=== PATIENT | male | born 1935 | race Caucasian/White ===

== ENCOUNTER → 2021-03-17 | Outpatient (CLI) | payer MEDICARE ==
[~2021-03-17] MED LIST: CLIN300 PO; HYDACE5 PO
[2021-03-17 17:40] LABS: BASOPHILS ABSOLUTE AUTO 0.08 K/mm3 (0.00-0.23); BASOPHILS PERCENT AUTO 1 % (0-2); EOSINOPHILS ABSOLUTE AUTO 0.43 K/mm3 (0.00-0.68); EOSINOPHILS PERCENT AUTO 5 % (0-6); Hematocrit 36.4 % (37.0-53.0); Hemoglobin 11.7 g/dL (13.5-17.5); IMMATURE GRAN ABSOLUTE AUTO 0.01 K/mm3 (0.00-0.10); IMMATURE GRAN PERCENT AUTO 0 % (0-1); LYMPHOCYTES ABSOLUTE AUTO 1.68 K/mm3 (0.84-5.20); LYMPHOCYTES PERCENT AUTO 21 % (21-46); MONOCYTES ABSOLUTE AUTO 1.09 K/mm3 (0.16-1.47); MONOCYTES PERCENT AUTO 14 % (4-13); Mean Corpuscular HGB 28.8 pg (26.0-34.0); Mean Corpuscular HGB Conc 32.1 g/dL (31.5-36.5); Mean Corpuscular Volume 90 fL (80-100); Mean Platelet Volume 12.3 fL (9.1-12.4); NEUTROPHILS ABSOLUTE AUTO 4.76 K/mm3 (1.96-9.15); NEUTROPHILS PERCENT AUTO 59 % (41-73); Platelet Count 241 K/mm3 (150-400); RDW Coefficient Variation 13.9 % (11.7-14.2); RDW Standard Deviation 45.3 fL (35.1-46.3); Red Blood Cell Count 4.06 M/mm3 (4.30-5.90); White Blood Cell Count 8.05 K/mm3 (4.00-11.30)
[2021-03-17 19:18] LABS: Alanine Aminotransfer (ALT/SGP 20 U/L (12-78); Albumin, Blood 3.5 g/dL (3.4-5.0); Albumin/Globulin Ratio 0.9 (0.8-1.8); Alk Phos 88 U/L (50-136); Anion Gap 4 mmol/L (6-16); Aspartate Aminotrans (AST/SGOT 18 U/L (12-37); Bilirubin, Total 0.3 mg/dL (0.1-1.0); Blood Urea Nitrogen 19 mg/dL (8-24); Bun/Creatinine Ratio 16.1 (12.0-20.0); CHOL/HDL RATIO 4.1; CO2, Blood 27 mmol/L (21-32); Calcium, Blood 9.3 mg/dL (8.5-10.1); Chloride, Blood 106 mmol/L (98-108); Cholesterol 167 mg/dL (50-200); Creatinine, Blood 1.18 mg/dL (0.60-1.20); Free Thyroxine 1.01 ng/dL (0.70-1.60); Globulin, Blood 3.7 g/dL (2.2-4.0); Glomerular Filtration Rate >60 (60-); Glucose, Blood 100 mg/dL (70-99); HDL Cholesterol 41 mg/dL (>39); LDL/HDL RATIO 2.1; Low Density Lipoprotein Chol 85 mg/dL (0-110); Potassium, Blood 4.8 mmol/L (3.5-5.5); Sodium, Blood 137 mmol/L (136-145); Total Protein, Blood 7.2 g/dL (6.4-8.2); Triglycerides 204 mg/dL (30-160); Very Low Density Lipoprot Chol 40 mg/dL (6-32)
== END | disposition home or self-care (01) ==
LOC: LAB SHORT 16:29 → LAB 16:29
PROVIDERS: Nurse Practitioner Family
DX: E78.5 Hyperlipidemia, unspecified (principal); Z86.39 Personal history of other endocrine, nutritional and metabolic disease
CPT/HCPCS: 80053; 80061; 83036; 84439; 84443; 85025

== ENCOUNTER 2022-09-23 12:28 | Day surgery (SDC) | payer OTHER ==
[~2022-09-23] VITALS: Ht 185.4 cm; Wt 81.7 kg
[~2022-09-23 12:28] MED LIST changes: +Floxin10 ML LEFTEYE; +KETO.5OPSO LEFTEYE; +LATA.005SO BOTHEYES; +PRED FORTE5 M1 LEFTEYE; +Preservision A1 EACH; +RHOPRESSA2.5 ML; +SIMBRINZA 1%-0.28 M1; +TIMO.25OPS; +Zestril30 MG PO
--- NOTE | 2022-09-23 13:16 | NUR ---
09/23/22 1316 Yesika Hook IN AT 1301 EULALIO IN AT 1300
== END 2022-09-23 14:40 | disposition home or self-care (01) ==
LOC: ORSCSDS 12:28
PROVIDERS: Ophthalmology
PROC: 08933ZZ Drainage of Left Anterior Chamber, Percutaneous Approach (ICD-10-PCS; principal; 2022-09-23 14:00)
PROC: 08RK3JZ Replacement of Left Lens with Synthetic Substitute, Percutaneous Approach (ICD-10-PCS; principal; 2022-09-23 14:00)
DX: H25.12 Age-related nuclear cataract, left eye (principal); Z96.1 Presence of intraocular lens; I10 Essential (primary) hypertension; H40.9 Unspecified glaucoma; H35.30 Unspecified macular degeneration
CPT/HCPCS: J2001; J2250; J3010; J3301; V2632

== ENCOUNTER 2022-11-04 08:19 | Emergency (ER) | payer OTHER ==
[~2022-11-04] VITALS: Ht 188 cm; Wt 79.4 kg
[2022-11-04 09:08] LABS: BASOPHILS ABSOLUTE AUTO 0.05 K/mm3 (0.00-0.23); BASOPHILS PERCENT AUTO 1 % (0-2); EOSINOPHILS ABSOLUTE AUTO 0.29 K/mm3 (0.00-0.68); EOSINOPHILS PERCENT AUTO 4 % (0-6); Hematocrit 38.4 % (37.0-53.0); Hemoglobin 12.3 g/dL (13.5-17.5); IMMATURE GRAN ABSOLUTE AUTO 0.03 K/mm3 (0.00-0.10); IMMATURE GRAN PERCENT AUTO 0 % (0-1); LYMPHOCYTES PERCENT AUTO 17 % (21-46); MONOCYTES ABSOLUTE AUTO 0.74 K/mm3 (0.16-1.47); MONOCYTES PERCENT AUTO 10 % (4-13); Mean Corpuscular HGB 29.3 pg (26.0-34.0); Mean Corpuscular Volume 91 fL (80-100); Mean Platelet Volume 11.1 fL (9.1-12.4); NEUTROPHILS ABSOLUTE AUTO 5.39 K/mm3 (1.96-9.15); NEUTROPHILS PERCENT AUTO 69 % (41-73); Platelet Count 221 K/mm3 (150-400); RDW Coefficient Variation 13.6 % (11.7-14.2); RDW Standard Deviation 45.6 fL (35.1-46.3)
[2022-11-04 09:30] LABS: Magnesium, Blood 1.9 mg/dL (1.6-2.4)
[2022-11-04 09:34] LABS: Albumin, Blood 3.2 g/dL (3.4-5.0); Albumin/Globulin Ratio 0.9 (0.8-1.8); Bilirubin, Total 0.3 mg/dL (0.1-1.0); Calcium, Blood 8.3 mg/dL (8.5-10.1); Creatinine, Blood 1.19 mg/dL (0.60-1.20); Globulin, Blood 3.4 g/dL (2.2-4.0); Potassium, Blood 4.2 mmol/L (3.5-5.5); Thyroid Stimulating Hormone 2.6 uIU/mL (0.360-4.800); Total Protein, Blood 6.6 g/dL (6.4-8.2)
[2022-11-04] MEDS ORDERED: Toprol Xl25 MG PO (15:26)
[2022-11-04] MEDS ORDERED: XARELTO20 MG PO (15:26)
== END 2022-11-04 15:52 | disposition home or self-care (01) ==
LOC: ER 08:19
PROVIDERS: Emergency Medicine
DX: I48.91 Unspecified atrial fibrillation (principal); I10 Essential (primary) hypertension; Z79.899 Other long term (current) drug therapy
CPT/HCPCS: 71045; 80053; 83735; 84443; 85025

== ENCOUNTER 2024-12-11 11:34 | Emergency (ER) | payer OTHER ==
[~2024-12-11] VITALS: Ht 172.7 cm; Wt 72.6 kg
[~2024-12-11 11:34] MED LIST changes: +Toprol Xl25 MG PO; +XARELTO20 MG PO
[2024-12-11 12:29] LABS: BASOPHILS ABSOLUTE AUTO 0.04 K/mm3 (0.00-0.23); BASOPHILS PERCENT AUTO 1 % (0-2); EOSINOPHILS ABSOLUTE AUTO 0.16 K/mm3 (0.00-0.68); EOSINOPHILS PERCENT AUTO 2 % (0-6); Hematocrit 30.6 % (37.0-53.0); Hemoglobin 10.2 g/dL (13.5-17.5); IMMATURE GRAN ABSOLUTE AUTO 0.03 K/mm3 (0.00-0.10); IMMATURE GRAN PERCENT AUTO 0 % (0-1); LYMPHOCYTES ABSOLUTE AUTO 0.76 K/mm3 (0.84-5.20); LYMPHOCYTES PERCENT AUTO 10 % (21-46); MONOCYTES ABSOLUTE AUTO 0.92 K/mm3 (0.16-1.47); MONOCYTES PERCENT AUTO 12 % (4-13); Mean Corpuscular HGB 29.6 pg (26.0-34.0); Mean Corpuscular HGB Conc 33.3 g/dL (31.5-36.5); Mean Corpuscular Volume 89 fL (80-100); Mean Platelet Volume 11.5 fL (9.1-12.4); NEUTROPHILS PERCENT AUTO 74 % (41-73); Platelet Count 234 K/mm3 (150-400); RDW Coefficient Variation 13.8 % (11.7-14.2); RDW Standard Deviation 44.6 fL (35.1-46.3); Red Blood Cell Count 3.45 M/mm3 (4.30-5.90); White Blood Cell Count 7.41 K/mm3 (4.00-11.30)
[2024-12-11 13:00] LABS: Albumin, Blood 3.4 g/dL (3.4-5.0); Bilirubin, Total 0.6 mg/dL (0.1-1.0); Calcium, Blood 9.5 mg/dL (8.5-10.1); Creatinine, Blood 1.12 mg/dL (0.60-1.20); Globulin, Blood 3.4 g/dL (2.2-4.0); Potassium, Blood 4.2 mmol/L (3.5-5.5); Total Protein, Blood 6.8 g/dL (6.4-8.2)
[2024-12-11 13:45] VITALS: BP 127/60
== END 2024-12-11 14:06 | disposition home or self-care (01) ==
LOC: ER 11:34
PROVIDERS: Emergency Medicine
DX: F03.90 Unspecified dementia, unspecified severity, without behavioral disturbance, psychotic disturbance, mood disturbance, and anxiety (principal); R29.6 Repeated falls; I10 Essential (primary) hypertension; Z79.899 Other long term (current) drug therapy; Z79.01 Long term (current) use of anticoagulants
CPT/HCPCS: 70450; 80053; 85025; 93005; 93010; 99284-25

== ENCOUNTER 2025-02-11 15:52 | Emergency (ER) | payer OTHER ==
[~2025-02-11] VITALS: Ht 172.7 cm; Wt 74.8 kg
[2025-02-11 16:52] LABS: BASOPHILS ABSOLUTE AUTO 0.04 K/mm3 (0.00-0.23); BASOPHILS PERCENT AUTO 1 % (0-2); EOSINOPHILS ABSOLUTE AUTO 0.29 K/mm3 (0.00-0.68); EOSINOPHILS PERCENT AUTO 5 % (0-6); Hematocrit 31.6 % (37.0-53.0); Hemoglobin 9.9 g/dL (13.5-17.5); IMMATURE GRAN ABSOLUTE AUTO 0.01 K/mm3 (0.00-0.10); IMMATURE GRAN PERCENT AUTO 0 % (0-1); LYMPHOCYTES ABSOLUTE AUTO 1.12 K/mm3 (0.84-5.20); LYMPHOCYTES PERCENT AUTO 18 % (21-46); MONOCYTES ABSOLUTE AUTO 0.74 K/mm3 (0.16-1.47); MONOCYTES PERCENT AUTO 12 % (4-13); Mean Corpuscular HGB 28.8 pg (26.0-34.0); Mean Corpuscular HGB Conc 31.3 g/dL (31.5-36.5); Mean Corpuscular Volume 92 fL (80-100); Mean Platelet Volume 11.6 fL (9.1-12.4); NEUTROPHILS ABSOLUTE AUTO 4.21 K/mm3 (1.96-9.15); NEUTROPHILS PERCENT AUTO 66 % (41-73); Platelet Count 215 K/mm3 (150-400); RDW Standard Deviation 47.1 fL (35.1-46.3); Red Blood Cell Count 3.44 M/mm3 (4.30-5.90); White Blood Cell Count 6.41 K/mm3 (4.00-11.30)
[2025-02-11 17:09] LABS: Albumin, Blood 3.4 g/dL (3.4-5.0); Albumin/Globulin Ratio 1.1 (0.8-1.8); Bilirubin, Total 0.3 mg/dL (0.1-1.0); Bun/Creatinine Ratio 28.4 (12.0-20.0); Calcium, Blood 8.9 mg/dL (8.5-10.1); Creatinine, Blood 1.09 mg/dL (0.60-1.20); Globulin, Blood 3.1 g/dL (2.2-4.0); Potassium, Blood 4.4 mmol/L (3.5-5.5); Total Protein, Blood 6.5 g/dL (6.4-8.2)
[2025-02-11 18:30] VITALS: BP 149/67
== END 2025-02-11 20:58 | disposition home or self-care (01) ==
LOC: ER 15:52
PROVIDERS: Student in an Organized Health Care Education/Training Program
DX: R60.0 Localized edema (principal); S80.811A Abrasion, right lower leg, initial encounter; I10 Essential (primary) hypertension; F03.90 Unspecified dementia, unspecified severity, without behavioral disturbance, psychotic disturbance, mood disturbance, and anxiety; Z79.01 Long term (current) use of anticoagulants; Z79.899 Other long term (current) drug therapy; W18.40XA Slipping, tripping and stumbling without falling, unspecified, initial encounter
CPT/HCPCS: 71046; 80053; 83880; 85025; 93005; 93010; 99284-25

== ENCOUNTER 2025-04-22 07:07 | Emergency (ER) | payer OTHER ==
[~2025-04-22] VITALS: Ht 182.9 cm; Wt 81.7 kg
[2025-04-22] MEDS ORDERED: Lidocaine 4% 1 Patch TOP ONE (07:40)
[2025-04-22] MEDS ORDERED: LIDO700A20 TOP (09:57)
[2025-04-22] MEDS ORDERED: ACET500 PO (09:57)
[2025-04-22] MEDS ORDERED: Prinivil10 MG PO (12:48)
[2025-04-22] MEDS ORDERED: [UNRECOGNIZED DRUG - OTHER] PO (12:49)
[2025-04-22] MEDS ORDERED: FURO40 PO (12:49)
[2025-04-22] MEDS ORDERED: AREDS 2 FORMULA PO (12:49)
[2025-04-22] MEDS ORDERED: ELIQUIS5 M2 PO (12:50)
[2025-04-22] MEDS ORDERED: MIRT30 PO (12:50)
[2025-04-22] MEDS ORDERED: FEROSUL325 M1 PO (12:51)
[2025-04-23] MEDS ORDERED: Lidocaine 4% 1 Patch TOP ONE (06:05)
[2025-04-23 10:24] VITALS: BP 141/67
== END 2025-04-23 11:33 ==
LOC: ER 07:07
DX: S20.212A Contusion of left front wall of thorax, initial encounter (principal); W18.30XA Fall on same level, unspecified, initial encounter; R55 Syncope and collapse; F03.90 Unspecified dementia, unspecified severity, without behavioral disturbance, psychotic disturbance, mood disturbance, and anxiety; I10 Essential (primary) hypertension; I48.91 Unspecified atrial fibrillation; Z66 Do not resuscitate; Z79.01 Long term (current) use of anticoagulants; Z79.899 Other long term (current) drug therapy
CPT/HCPCS: 71101; 97162; 99285-25; A9270

== ENCOUNTER 2025-05-28 17:22 | Inpatient (IN) | payer OTHER, MEDICARE ==
[~2025-05-28] VITALS: Ht 185.4 cm; Wt 67.4 kg
[~2025-05-28 17:22] MED LIST changes: +ACET500 PO; +AREDS 2 FORMULA PO; +ELIQUIS5 M2 PO; +FEROSUL325 M1 PO; +FURO40 PO; +LIDO700A20 TOP; +MIRT30 PO; +Prinivil10 MG PO; +[UNRECOGNIZED DRUG - OTHER] PO
[2025-05-28 17:59] LABS: BASOPHILS ABSOLUTE AUTO 0.01 K/mm3 (0.00-0.23); BASOPHILS PERCENT AUTO 0 % (0-2); EOSINOPHILS ABSOLUTE AUTO 0.00 K/mm3 (0.00-0.68); EOSINOPHILS PERCENT AUTO 0 % (0-6); Hematocrit 28.4 % (37.0-53.0); Hemoglobin 9.3 g/dL (13.5-17.5); IMMATURE GRAN ABSOLUTE AUTO 0.07 K/mm3 (0.00-0.10); IMMATURE GRAN PERCENT AUTO 0 % (0-1); LYMPHOCYTES ABSOLUTE AUTO 0.96 K/mm3 (0.84-5.20); LYMPHOCYTES PERCENT AUTO 6 % (21-46); MONOCYTES ABSOLUTE AUTO 1.77 K/mm3 (0.16-1.47); MONOCYTES PERCENT AUTO 10 % (4-13); Mean Corpuscular HGB Conc 32.7 g/dL (31.5-36.5); Mean Corpuscular Volume 90 fL (80-100); NEUTROPHILS ABSOLUTE AUTO 14.72 K/mm3 (1.96-9.15); NEUTROPHILS PERCENT AUTO 84 % (41-73); NRBC ABSOLUTE 0.00 K/mm3 (0.00-0.02); NRBC Auto 0.0 /100 WBC (0.0-0.2); Platelet Count 268 K/mm3 (150-400); RDW Coefficient Variation 15.8 % (11.7-14.2); RDW Standard Deviation 52.1 fL (35.1-46.3)
[2025-05-28 18:42] LABS: Alanine Aminotransfer (ALT/SGP 19.0 U/L (12-78); Albumin, Blood 2.5 g/dL (3.4-5.0); Albumin/Globulin Ratio 0.6 (0.8-1.8); Anion Gap 5.0 mmol/L (3-11); Aspartate Aminotrans (AST/SGOT 38.0 U/L (12-37); Bilirubin, Total 0.4 mg/dL (0.1-1.0); Blood Urea Nitrogen 86.0 mg/dL (8-24); CO2, Blood 26.0 mmol/L (21-32); Calcium, Blood 9.1 mg/dL (8.5-10.1); Chloride, Blood 106.0 mmol/L (98-108); Creatinine, Blood 4.11 mg/dL (0.60-1.20); Globulin, Blood 4.2 g/dL (2.2-4.0); Glucose, Blood 155.0 mg/dL (70-99); Potassium, Blood 5.2 mmol/L (3.5-5.5); Sodium, Blood 132.0 mmol/L (136-145); Total Protein, Blood 6.7 g/dL (6.4-8.2)
[2025-05-28] MEDS ORDERED: NS 1,000 ML IV SCH (20:25)
[2025-05-28] MEDS ORDERED: Ondansetron HCl 2 MG / ML 2ML Vial IV PRN (20:25)
[2025-05-28] MEDS ORDERED: HydrALAZINE HCl 20 MG / ML 1ML Vial IV PRN (20:30)
[2025-05-28 20:34] LABS: Source, Urine Foley catheter
[2025-05-28 20:42] LABS: Magnesium, Blood 2.8 mg/dL (1.6-2.4); Phosphorus, Blood 6.1 mg/dL (2.5-4.9)
[2025-05-28 20:45] LABS: Bilirubin, Urine Neg (Neg); Color, Urine Yellow (P-Yellow); Glucose Qualitative, Urine Neg (Neg); Ketones, Urine Neg (Neg); Leukocyte Esterase, Urine 3+ (Neg); Protein, Urine 2+ (Neg); Specific Gravity, Urine 1.020 (1.003-1.022); Urobilinogen, Urine NORM (Normal)
[2025-05-28] MEDS ORDERED: CefTRIAXone Sodium 1,000 MG in NS 100 ML IV ONE (20:50)
[2025-05-28] MEDS ORDERED: Heparin Sodium,Porcine 5,000 UNIT/0.5 ML SDV SC SCH (21:00)
[2025-05-28] MEDS ORDERED: NS 1,000 ML IV ONE (21:00)
[2025-05-29] MEDS ORDERED: NS 1,000 ML IV ONE (06:20)
[2025-05-29 06:33] LABS: BASOPHILS ABSOLUTE AUTO 0.01 K/mm3 (0.00-0.23); BASOPHILS PERCENT AUTO 0 % (0-2); EOSINOPHILS ABSOLUTE AUTO 0.01 K/mm3 (0.00-0.68); EOSINOPHILS PERCENT AUTO 0 % (0-6); Hematocrit 27.2 % (37.0-53.0); Hemoglobin 8.7 g/dL (13.5-17.5); IMMATURE GRAN ABSOLUTE AUTO 0.07 K/mm3 (0.00-0.10); IMMATURE GRAN PERCENT AUTO 1 % (0-1); LYMPHOCYTES ABSOLUTE AUTO 0.81 K/mm3 (0.84-5.20); LYMPHOCYTES PERCENT AUTO 6 % (21-46); MONOCYTES ABSOLUTE AUTO 1.45 K/mm3 (0.16-1.47); MONOCYTES PERCENT AUTO 11 % (4-13); Mean Corpuscular HGB Conc 32.0 g/dL (31.5-36.5); Mean Corpuscular Volume 91 fL (80-100); NEUTROPHILS ABSOLUTE AUTO 11.27 K/mm3 (1.96-9.15); NEUTROPHILS PERCENT AUTO 83 % (41-73); NRBC ABSOLUTE 0.00 K/mm3 (0.00-0.02); NRBC Auto 0.0 /100 WBC (0.0-0.2); Platelet Count 208 K/mm3 (150-400); RDW Coefficient Variation 15.9 % (11.7-14.2); RDW Standard Deviation 52.5 fL (35.1-46.3)
[2025-05-29 06:52] LABS: Anion Gap 11.0 mmol/L (3-11); Blood Urea Nitrogen 96.0 mg/dL (8-24); CO2, Blood 24.0 mmol/L (21-32); Calcium, Blood 8.6 mg/dL (8.5-10.1); Chloride, Blood 109.0 mmol/L (98-108); Creatinine, Blood 4.09 mg/dL (0.60-1.20); Glucose, Blood 106.0 mg/dL (70-99); Magnesium, Blood 2.7 mg/dL (1.6-2.4); Potassium, Blood 4.3 mmol/L (3.5-5.5); Sodium, Blood 140.0 mmol/L (136-145)
[2025-05-29 09:15] VITALS: BP 104/56
[2025-05-29] MEDS ORDERED: LOPE2C PO (10:47)
[2025-05-29] MEDS ORDERED: Hair, Skin & N1 EACH PO (10:48)
[2025-05-29] MEDS ORDERED: Acetaminophen650 M1 PO (11:02)
[2025-05-29] MEDS ORDERED: BISA10S PR (11:03)
[2025-05-29] MEDS ORDERED: DULCOLAX400 MG/5 M PO (11:04)
[2025-05-29 11:31] VITALS: BP 94/53
[2025-05-29 15:41] VITALS: BP 108/69
--- NOTE | 2025-05-29 15:46 | NUR ---
SPOKE WITH PT'S FRANCK BY PHONE. SHE STATES SHE WAS NOT AWARE OF OR ON BOARD WITH PT'S CODE STATUS COMFORT CARE ONLY. THE PATIENT HAS DEMENTIA AND REQUIRES ASSISTANCE WITH DECISION MAKING. HIS , FRANCK IS HIS PROXY. BART HOYT COMPLETED, PT NOW DNR WITH SELECTIVE TREATMENT. PT TO RETURN TO [facility] WHEN DISCHARGED.
[2025-05-29] MEDS ORDERED: NS 1,000 ML IV SCH (16:25)
--- NOTE | 2025-05-29 18:15 | NUR ---
PCU Admit / Transfer to Medical Pt brought to PCU-08 by cara from ER @ approx 0900. Pt A&O to self. Pt stating "I don't know" when asking further orientation questions. Pt 1-2 person assist for repositioning. VSS. Spo2 > 92% on RA. Monitor showing SR w/ PVCs. Blandon cath patent & draining dark tea colored urine upon arrival. Pt urine then lightening in color. Pt moaning out frequently. MD to bedside for evaluation & w/ order for PO pain medication & RLE imgaging d/t pt reporting pain "all over" but worst "R leg". Xrays done in pt rm. Report given to accepting medical floor RN assuming care of pt. Pt taken to rm 350 by bed w/ belongings @ approx 1815.
[2025-05-29 20:24] VITALS: BP 114/65
[2025-05-29] MEDS ORDERED: CefTRIAXone Sodium 1,000 MG in NS 100 ML IV SCH (21:00)
--- NOTE | 2025-05-30 04:56 | NUR ---
SHIFT SUMMARY NOC PT A/O TO SELF. SCREAMING OUT CONSTANTLY, BUT IN NO VISIBLE SIGNS OF DISTRESS NOTED AND COOPERATIVE WITH CARE. PT HAS TENDENCY TO POCKET FLUIDS AND FOOD. PAIN MEDICATION HELPED SLIGHTLY AND PT STOPPED FOR AWHILE. PT GIVEN ONE TIME DOSE SEROQUEL 50MG PO AND PT FELL ASLEEP. VSS. JORDAN IN PLACE WITH DARK TEA COLORED URINE. NS INFUSING @ 125 ML/HR. PT CURRENTLY RESTING WITH BED ALARM ON, BED IN LOWEST POSITION, AND CALL LIGHT WITHIN REACH.
[2025-05-30 05:41] VITALS: BP 128/62
[2025-05-30 06:42] LABS: Total Iron Binding Capacity 152 ug/dL (250-450)
[2025-05-30 06:43] LABS: Albumin, Blood 2.3 g/dL (3.4-5.0); Anion Gap 8 mmol/L (3-11); Blood Urea Nitrogen 91 mg/dL (8-24); CO2, Blood 24 mmol/L (21-32); Calcium, Blood 8.6 mg/dL (8.5-10.1); Chloride, Blood 113 mmol/L (98-108); Creatinine, Blood 3.21 mg/dL (0.60-1.20); Glucose, Blood 116 mg/dL (70-99); Phosphorus, Blood 4.6 mg/dL (2.5-4.9); Potassium, Blood 4.1 mmol/L (3.5-5.5); Sodium, Blood 141 mmol/L (136-145)
[2025-05-30 07:27] VITALS: BP 119/63
[2025-05-30] MEDS ORDERED: Darbepoetin (Pharmacy Consult) SC SCH (07:50)
[2025-05-30] MEDS ORDERED: NS 1,000 ML IV SCH (07:50)
[2025-05-30] MEDS ORDERED: Sod Ferric Gluc Complx/Sucrose 125 MG in NS 100 ML IV SCH (09:00)
--- NOTE | 2025-05-30 10:57 | NUR ---
"Spiritual Care Visit | Family Request Pt. displays evidence of discomfort that makes him shout, though he is compliant and responsive when I communicate with him. Spouse and a friend are at bedside and weclome my visit as well ats the Pt. Spouse verbalizes that the Pt. is a man of ghassan. Facilitate a life review with spouse and friend. Prayed with the Pt. Pt. displayed some evidence of reduced discomfort. Will remain available to the Pt. and family."
--- NOTE | 2025-05-30 15:17 | NUR ---
THIS PATIENT IS AN 89 Y.O. MALE WITH EXTENSIVE MEDICAL HISTORY INCLUDING A-FIB, HTN, DEMENTIA. HE HAS BEEN STAYING AT [facility] FOR RESPITE WHILE HAD AND RECOVERED FROM SURGERY. HE CAME TO HOSPITAL FOR GENERALIZED WEAKNESS AND FEVER. HE WAS FOUND TO BE SEPTIC WITH SIGNIFICANT ACUTE KIDNEY INJURY. THE PATIENT HAS BEEN EXHIBITING S/S OF PAIN WITH OUR WITHOUT MOVEMENT, FROM WINCING BROWS, TO CRYING OUT, BUT THAT APPEARS TO HAVE RESOLVED SOMEWHAT SINCE YESTERDAY. DR. LOPEZ AGREES, PT, AND DAUGHTER ALL IN AGREEMENT. PLAN: OPTIMIZE PT, THEN D/C WITH HOSPICE.
--- NOTE | 2025-05-30 17:53 | NUR ---
NO CHANGES, PATIENT CONTINUES TO SCREAM OUT AND APPEAR FRIGHTNED, ANSWERS QUESTIONS ALERT AND ORIENTED, PT/ST ORDERED TODAY, POOR DIRECTION UNDERSTANDING WHEN SWALLOWING, PATIENT AND AGREED TO TREATMENT FOR NOW BUT PATIENT WILL BE HOME WITH HOSPICE, PATIENT IS ALERT AND ORIENTED TO SELF AND FAMILY. REPOSITIONED THROUGH OUT THE DAY, CALL LIGHT WITH IN REACH
[2025-05-30 21:00] VITALS: BP 110/62
--- NOTE | 2025-05-31 04:45 | NUR ---
SHIFT SUMMARY NOC PT A/O TO SELF. SCREAMING OUT CONSTANTLY, BUT IN NO VISIBLE SIGNS OF DISTRESS NOTED AND COOPERATIVE WITH CARE. PT HAS TENDENCY TO POCKET FLUIDS AND FOOD AND HAS ST EVALUATION FOR TODAY. PRN SEROQUEL GIVEN AT WITH BEDTIME MEDS CRUSHED IN APPLESAUCE AND PT STOPPED SCREAMING OUT. VSS. JORDAN IN PLACE WIHT CLEAR YELLOW URINE.PT CURRENTLY RESTING WITH BED ALARM ON, BED IN LOWEST POSITION, AND CALL LIGHT WITHIN REACH.
[2025-05-31 05:02] VITALS: BP 112/65
[2025-05-31 07:30] VITALS: BP 130/74
[2025-05-31 07:40] LABS: BASOPHILS ABSOLUTE AUTO 0.01 K/mm3 (0.00-0.23); BASOPHILS PERCENT AUTO 0 % (0-2); EOSINOPHILS ABSOLUTE AUTO 0.01 K/mm3 (0.00-0.68); EOSINOPHILS PERCENT AUTO 0 % (0-6); Hematocrit 29.7 % (37.0-53.0); Hemoglobin 9.0 g/dL (13.5-17.5); IMMATURE GRAN ABSOLUTE AUTO 0.07 K/mm3 (0.00-0.10); IMMATURE GRAN PERCENT AUTO 1 % (0-1); LYMPHOCYTES ABSOLUTE AUTO 0.57 K/mm3 (0.84-5.20); LYMPHOCYTES PERCENT AUTO 7 % (21-46); MONOCYTES ABSOLUTE AUTO 0.98 K/mm3 (0.16-1.47); MONOCYTES PERCENT AUTO 11 % (4-13); Mean Corpuscular HGB Conc 30.3 g/dL (31.5-36.5); Mean Corpuscular Volume 94 fL (80-100); NEUTROPHILS ABSOLUTE AUTO 6.98 K/mm3 (1.96-9.15); NEUTROPHILS PERCENT AUTO 81 % (41-73); NRBC ABSOLUTE 0.00 K/mm3 (0.00-0.02); NRBC Auto 0.0 /100 WBC (0.0-0.2); Platelet Count 214 K/mm3 (150-400); RDW Coefficient Variation 15.8 % (11.7-14.2); RDW Standard Deviation 54.4 fL (35.1-46.3)
[2025-05-31 07:56] LABS: Magnesium, Blood 2.6 mg/dL (1.6-2.4)
[2025-05-31 07:57] LABS: Albumin, Blood 2.2 g/dL (3.4-5.0); Anion Gap 9 mmol/L (3-11); Blood Urea Nitrogen 74 mg/dL (8-24); CO2, Blood 23 mmol/L (21-32); Calcium, Blood 8.6 mg/dL (8.5-10.1); Chloride, Blood 121 mmol/L (98-108); Creatinine, Blood 2.35 mg/dL (0.60-1.20); Glucose, Blood 113 mg/dL (70-99); Phosphorus, Blood 3.6 mg/dL (2.5-4.9); Potassium, Blood 4.3 mmol/L (3.5-5.5); Sodium, Blood 149 mmol/L (136-145)
--- NOTE | 2025-05-31 10:57 | NUR ---
ASSUMED CARE OF PT A/O X 2, PT CRYING OUT AND SLAPPING HIS CHEST. I ASKED IF HE WAS HAVING PAIN AND PT SOFTLY STATED THAT HE DID NOT AND WE ENGAGED IN CONVERSATION OF WHERE HE USED TO LIVE. PT DID CRY OUT WHEN HE WAS TURNED TO REPOSITION SO I DECIDED TO MEDICATE FOR PAIN. AWAITING PALATIVE CARE FOR FURTHER ASSESSMENT, PT POSSIBLE TRANSITION TO HOSPICE. SPEECH EVAL ON HOLD, PT WAS ABLE TO TAKE MEDICATION WITH APPLE SAUCE AND SIPS OF WATER, NO S/S OF ASPIRATION. AT BEDSIDE NOW, PT SLEEPING.
--- NOTE | 2025-05-31 15:04 | NUR ---
Spiritual Care Family Support Pt. is somnolent and not responsive. Spouse is at bedside and welcomes my visit. Facilitated an extended life review and considered matters of ghassan and family. Stories of their lives in [facility] and [place] brought fond memories to the spouse. Listen with interst and empathy. Spouse displays evidence of great ghassan as well as a realistic understanding of the Pts. condiiton. Prayed with the Spouse. Spouse verbalized gratitude for the spiritual care visit.
[2025-05-31 16:38] VITALS: BP 143/70
[2025-05-31] MEDS ORDERED: LORazepam Conc 2 MG/ML - 1ML UDC PO PRN (17:25)
[2025-05-31] MEDS ORDERED: Morphine Sulfate 20 MG/1ML 1 ML Oral Syringe PO PRN (17:30)
--- NOTE | 2025-05-31 18:37 | NUR ---
AT BEDSIDE AND IS ABLE TO COMFORT PT WHEN ANXIETY INCREASES. PT IS NOW REFUSING TO OPEN MOUTH FOR ME AND WHENEVER ATTEMPS ARE MADE TO SUCTION PT BEGINS TO MOAN AND WAVE HANDS IN THE AIR. I WAS ABLE TO SUCTION PT BUT DID NOT FIND ANY POCKETING OF FLUIDS OF FOOD. PT STILL SEEMS LIKE HE IS IN A LOT OF PAIN BUT WHEN ASKED PT EITHER SAYS NO OR NODES HEAD SAYING NO. WILL CONT TO MONITOR. ROXANOL ORDERED FOR PT AND 5ML GIVEN, ATTEMPTS WERE MADE FOR BEDBATH BUT PT STILL VERY ANXIOUS CRYING OUT.
[2025-05-31 21:18] VITALS: BP 148/61
[2025-06-01 03:56] VITALS: BP 115/61
--- NOTE | 2025-06-01 04:42 | NUR ---
PT SEPT INTERMITENTLY, UNNSURE IF ORIENTED AT ALL, DOES NOT ANSWER ANY QUESTIONS, AND ONLY MOANS MOST OF TIME. PT WAS TURNED, REFUSED MOST MEDS, ALTHOUGH WAS ABLE TO GIVE ROXINOL ALTHOUGH HE DID TRY TO HOLD IT IN HIS MOUTH AND NOT WANT TO SWALLOW. PT JORDAN PATENT, POOR PO INTAKE. IVF RUNNING, AND REMAINS ON IVABX. VS WNL, PLAN TO D/C TO [facility] WITH HOSPICE POTENTIALLY.
[2025-06-01 05:58] LABS: Hematocrit 26.4 % (37.0-53.0); Hemoglobin 8.4 g/dL (13.5-17.5)
[2025-06-01 06:17] LABS: Albumin, Blood 2.0 g/dL (3.4-5.0); Anion Gap 6 mmol/L (3-11); Blood Urea Nitrogen 60 mg/dL (8-24); CO2, Blood 22 mmol/L (21-32); Calcium, Blood 8.5 mg/dL (8.5-10.1); Chloride, Blood 121 mmol/L (98-108); Creatinine, Blood 1.84 mg/dL (0.60-1.20); Glucose, Blood 217 mg/dL (70-99); Magnesium, Blood 2.3 mg/dL (1.6-2.4); Phosphorus, Blood 2.4 mg/dL (2.5-4.9); Potassium, Blood 3.8 mmol/L (3.5-5.5); Sodium, Blood 145 mmol/L (136-145)
[2025-06-01 07:09] VITALS: BP 127/90
[2025-06-01] MEDS ORDERED: POTASSIUM PHOSPHATE DIBASIC IV SCH (07:50)
[2025-06-01] MEDS ORDERED: Potassium Phosphate Dibasic 10 MM in Dextrose 5% 250 ML IV STA (07:58)
[2025-06-01] MEDS ORDERED: Morphine Sulfate 20 MG/1ML 1 ML Oral Syringe PO PRN (10:30)
[2025-06-01] MEDS ORDERED: LORazepam Conc 2 MG/ML - 1ML UDC PO PRN (10:30)
--- NOTE | 2025-06-01 11:23 | NUR ---
ASSUMED CARE ARRIVED ON FLOOR AND PT WAS IN DISTRESS CRYING OUT, PT UNABLE TO EXPRESS CLEARLY IS PAIN OR DISTRESS, POINT AT CHEST WITH FINGER BUT STATES NO WHEN I ASK. MD IS AWARE AND WILL CHANGE SEVERAL MEDICATIONS TO ASSIST WITH BETTER COMFORT. ASSESSMENT IS NEGATIVE, JORDAN DRAINING CLR YELLOW.
--- NOTE | 2025-06-01 11:33 | NUR ---
PT STILL CRYINGOUT AFTER MEDICATED, ATTEMPTED TO REPOSITION BUT PT WAS VERY HESITQANT. WILL CONT TO MEDICATE.
[2025-06-01] MEDS ORDERED: Haloperidol Lactate Inj. 5 MG/ML Injection IV SCH (12:00)
[2025-06-01 15:19] VITALS: BP 140/87
--- NOTE | 2025-06-01 15:53 | NUR ---
PT GIVEN A BEDBATH AND CATH CARE, PT MOANED AND CRIED OUT WHEN TURNED. PT REPOSITIONED TO RIGHT SIDE AND QUICKLY FELL ASLEEP. IS NOW AT PT SIDE. PT IS CONSOLABLE WHEN AT BEDSIDE.
--- NOTE | 2025-06-01 17:26 | NUR ---
1630 PT FINALLY FELL ASLEEP AND IS CURRENTLY RESTING NO S/S OF DISTRESS NO C/O PAIN. WILL CONT TO MONITOR.
[2025-06-01 19:51] VITALS: BP 121/84
--- NOTE | 2025-06-02 03:45 | NUR ---
PT A&O X0, MOANING OCCASIONALY, SLEPT BETTER WITH HALDOL ON BOARD. PT WITH IVF RUNNING, AND CONTINUES ON IVABX. VS WNL, STILL REFUSES PO INTAKE. JORDAN WITH UOP WNL. PLAN UNSURE AT THIS TIME.
--- NOTE | 2025-06-02 05:15 | NUR ---
PT SLEEPING WELL WILL HOLD VS AT THIS TIME.
[2025-06-02 05:51] LABS: Hematocrit 26.8 % (37.0-53.0); Hemoglobin 8.6 g/dL (13.5-17.5)
[2025-06-02 06:11] LABS: Albumin, Blood 1.9 g/dL (3.4-5.0); Anion Gap 5 mmol/L (3-11); Blood Urea Nitrogen 48 mg/dL (8-24); CO2, Blood 24 mmol/L (21-32); Calcium, Blood 8.4 mg/dL (8.5-10.1); Chloride, Blood 119 mmol/L (98-108); Creatinine, Blood 1.63 mg/dL (0.60-1.20); Glucose, Blood 177 mg/dL (70-99); Magnesium, Blood 2.2 mg/dL (1.6-2.4); Phosphorus, Blood 2.3 mg/dL (2.5-4.9); Potassium, Blood 3.7 mmol/L (3.5-5.5); Sodium, Blood 144 mmol/L (136-145)
[2025-06-02] MEDS ORDERED: Potassium Phosphate Dibasic 20 MM in Dextrose 5% 500 ML IV ONE (07:30)
[2025-06-02 08:46] VITALS: BP 139/79
--- NOTE | 2025-06-02 13:39 | NUR ---
ASSUMED CARE PT SLEEPING COMFORTABLY, EASILY AROUSABLE. NO S/S OF DISTRESS NO C/O PAIN AT THIS TIME. BREAKFAST BROUGHT INTO ROOM BUT PT REFUSED AND FELL BACK ASLEEP.
--- NOTE | 2025-06-02 13:40 | NUR ---
AT BEDSIDE. SITTING AT BEDSIDE HOLDING PT HAND. PT WAKES INTERMITTENTLY AND YELLS OUT BUT FALLS BACK ASLEEP. WOKE PT UP FOR LUNCH, STATED THAT HE LIKED OREOS. OREOS WERE BOUGHT IN [place], PT EXCITEDLY TOOK OREO AND ATE ONE AND WAS VERY HAPPY. PT ALSO HAD ABOUT 10% OF LUNCH.
--- NOTE | 2025-06-02 15:31 | NUR ---
REPOSTIONING PT NOTE HEEL BLISTER CLOSED AND NO C/O PAIN, BLISTER PHOTO TAKEN AND COVERED UP WITH HEEL PROTECTOR AND FOAM HEEL GAURD. PT IS A/O, AT BEDSIDE, REPOSITIONED
[2025-06-02 17:32] VITALS: BP 108/77
[2025-06-02 19:25] LABS: ALPHA 1 GLOBULIN 0.53 g/dL (0.19-0.46); ALPHA 2 GLOBULIN 1.07 g/dL (0.48-1.05); BETA GLOBULIN 0.73 g/dL (0.48-1.10); GAMMA 0.70 g/dL (0.62-1.51); IMMUNOFIXATION REFLEX Not Done
[2025-06-02 21:18] VITALS: BP 125/63
[2025-06-03 04:06] VITALS: BP 129/71
--- NOTE | 2025-06-03 04:23 | NUR ---
SHIFT SUMMARY: PT AOX1-2 RESPONDS TO VERBAL STIMULI AND WHEN AWAKENED WITH MOVEMENT. COOPERATIVE IN CARE, OTHERWISE NON VERBAL, FOLLOWING COMMANDS AT TIMES, BUT ONLY GRUNTING. PT TOLERATING MEDICATIONS WELL. NO ACUTE OVERNIGHT EVENTS. JORDAN IN PLACE HAVING GOOD OUTPUT. PT IN BED RESTING, BED IN LOWEST POSITION, CALL LIGHT IN REACH. CONTINUING CARE.
[2025-06-03 07:53] VITALS: BP 146/119
[2025-06-03 11:26] LABS: Hematocrit 30.7 % (37.0-53.0); Hemoglobin 9.8 g/dL (13.5-17.5)
[2025-06-03 12:44] LABS: Albumin, Blood 1.9 g/dL (3.4-5.0); Anion Gap 8 mmol/L (3-11); Blood Urea Nitrogen 38 mg/dL (8-24); CO2, Blood 22 mmol/L (21-32); Calcium, Blood 8.4 mg/dL (8.5-10.1); Chloride, Blood 114 mmol/L (98-108); Creatinine, Blood 1.51 mg/dL (0.60-1.20); Glucose, Blood 140 mg/dL (70-99); Magnesium, Blood 2.1 mg/dL (1.6-2.4); Phosphorus, Blood 2.7 mg/dL (2.5-4.9); Potassium, Blood 4.1 mmol/L (3.5-5.5); Sodium, Blood 140 mmol/L (136-145)
[2025-06-03] MEDS ORDERED: LORA2L PO (14:37)
[2025-06-03] MEDS ORDERED: MORP20L PO (14:41)
[2025-06-03] MEDS ORDERED: Seroquel Xr50 MG PO (14:41)
[2025-06-03 15:12] LABS: CORONAVIRUS COVID-19 AG Positive (NEGATIVE)
[2025-06-03] MEDS ORDERED: Morphine Sulfate 20 MG/1ML 1 ML Oral Syringe SL PRN (18:10)
[2025-06-03] MEDS ORDERED: Atropine Sulfate 1% Opth Soln 2ML BTL SL PRN (18:10)
[2025-06-03 18:12] VITALS: BP 115/50
--- NOTE | 2025-06-03 18:37 | NUR ---
SHIFT SUMMARY PT CONT LEVEL OF CARE. PT NOTED TO BE A&O TO SELF PT WAS ABLE TO GIVE THIS NURSE HIS THIS SHIFT. PLAN WAS FOR PT TO [facility]PICE THIS SHIFT BUT PT RAPID COVID TEST CAME BACK POSITIVE. PT WILL REMAIN DNR AND COMFORT MEASURES AT THIS TIME WITH NO CHANGE TO PLAN OF CARE. PHYSICIAN STATED TO ADAVANCE DIET TOLERATED. PT NOTED TO EAT A BITE OF A BROWNIE THAT PT BROUGHT IN THIS SHIFT. PT CONT WITH Q2 HR TURNS. JORDAN REMAINS PATENT AND DRAINING TO GRAVITY.
[2025-06-03 19:46] VITALS: BP 123/70
--- NOTE | 2025-06-04 06:03 | NUR ---
SHIFT SUMMARY: PT AOX1-2 CONFUSED BUT COOPERATIVE IN CARE. SEEMS A LOT MORE ORIENTED THAN THE NIGHT BEFORE, HAS BEEN ABLE TO RESPOND TO QUESTIONS WITH SHORT SENTANCES OPPOSED TO JUST GRUNTS HE WAS GIVING THE NIGHT BEFORE. FOLLOWS SOME COMMANDS, BUT STILL UNABLE TO MOVE VERY WELL. STILL VERY WEAK AND FRAIL. JORDAN IN PLACE WITH GOOD OUTPUT. PT HAD SOME SIGNS OF AIR HUNGER, SLEEPING WHILE GRUNTING SOME AND FURLED BROW, MEDICATED PER EMR. TOLERATING MEDICATIONS WELL. PT STILL HAVING SOME DIFFICULTY SWALLOWING LIQUIDS WHILE ASKING FOR SOME WATER. NO ACUTE OVERNIGHT EVENTS. PT IN BED RESTING, BED IN LOWEST POSITION, CALL LIGHT IN REACH. CONTINUING CARE.
[2025-06-04 06:31] LABS: Hematocrit 29.5 % (37.0-53.0); Hemoglobin 9.2 g/dL (13.5-17.5)
[2025-06-04 07:02] LABS: Albumin, Blood 1.7 g/dL (3.4-5.0); Anion Gap 9 mmol/L (3-11); Blood Urea Nitrogen 35 mg/dL (8-24); CO2, Blood 22 mmol/L (21-32); Calcium, Blood 7.9 mg/dL (8.5-10.1); Chloride, Blood 116 mmol/L (98-108); Creatinine, Blood 1.46 mg/dL (0.60-1.20); Glucose, Blood 108 mg/dL (70-99); Magnesium, Blood 2.0 mg/dL (1.6-2.4); Phosphorus, Blood 2.7 mg/dL (2.5-4.9); Potassium, Blood 3.9 mmol/L (3.5-5.5); Sodium, Blood 143 mmol/L (136-145)
[2025-06-04 07:24] VITALS: BP 122/63
[2025-06-04 10:17] LABS: SARS-Cov-2 (COVID-19) PCR, MMC POSITIVE (NEGATIVE)
[2025-06-04 15:21] VITALS: BP 138/67
--- NOTE | 2025-06-04 18:43 | NUR ---
SHIFT SUMMARY PT ORIENTED TO SELF ONLY. CALM IN BED. CHOSE TO HAVE PT PLACED ON COMFORT CARE. PT SHOWS NO SIGNS OF PAIN OR ANXIETY. SCHEDULED HALDOL Q 4 GIVEN PER EMAR. PT PCR COVID TEST POSITIVE, DROPLET PRECAUTIONS REMAIN. JORDAN IN PLACE DRAINING DARK YELLOW URINE TO GRAVITY. NO BM THIS SHIFT.
--- NOTE | 2025-06-05 04:16 | NUR ---
SHIFT SUMMARY: PT AOX1-2 MAINLY GRUNTING BUT SHORT WORDS AND PHRASES AT TIMES. FOLLOWS SOME COMMANDS BUT BLANK AT OTHER TIMES. SOME AIR HUNGER AND GRUNTING AT REST. MEDICATED PER EMR. JORDAN IN PLACE WITH GOOD DRAINAGE TO GRAVITY. TOLERATING MEDICATIONS WELL. NO ACUTE OVERNIGHT EVENTS. SLEEPY, BUT EASILY ARROUSED. PT IN BED RESTING, BED IN LOWEST POSITION, CALL LIGHT IN REACH. CONTINUING CARE.
--- NOTE | 2025-06-05 12:57 | NUR ---
"SPiritual Care | Comfort Care Visit. Pt. is on comfort care and is mostly not responsive. SPouse is at bedside. Spouse infirmed this herbicide sprayer that the Pt. had been put on Comfort Care overnight. Listened with empathy and a calming presence. Prayed for the Pt. Spouse verbalized gratitude for the spiritual care support. This herbicide sprayer will remain available to the Pt. and Spouse. EOL Education took place after prayer. Spouse has chosen [facility] as the home. Spouse verbalized that she does not expect any other family to come to bedside. Home choice is given to the Med Floor charge nurse as well as the Palliative Care team."
--- NOTE | 2025-06-06 05:11 | NUR ---
WEEKLY SUMMARY PT ALERT TO SELF ONLY OPENS EYES BUT DOESNT SAY ANYTHING. REMAINS ON COMFORT CARE. ROXANOL AND ATIVAN GIVEN TO HELP WITH AIR HUNGER AND PAIN. JORDAN CATH INTACT DRAINING DARK CLAUDIA URINE. REMAINS ON RA. DRESSINGS INTACT TO BILAT HEELS AND A NEW DRESSING WAS APPLIED TO HIS GLUTEAL CREASE. HES KEPT TURNED AND REPOSITIONED FOR COMFORT. HE HAS TESTED POSITIVE FOR COVID AND REMAINS ON ISOLATION. RESTING IN BED AT THIS TIME WITH CALL LIGHT IN REACH
--- NOTE | 2025-06-06 11:49 | NUR ---
"Spiritual Care | Comfort Care Pt. is on comfort care and is not responsive, but is resting peacefully. Spouse Corina is at bedside. Facilitated an updaate from the spouse and inquired about her well being as she had verbalized that she was also recovering from a procedure. Listen with empathy and a calming presence. Psalm 23 is read, and a peronalized blessing is given for the Pt. Spouse verbalized gratitude for the spiritual care visit and welcomed this county health officer to return. Will remain available to the Pt. and spouse."
--- NOTE | 2025-06-06 18:47 | NUR ---
SUMMARY-= PT BECOMOING MORE SOMNOLANT. STILL OPENS EYES TO VERBAL AND WHEN PT MOVED HE IS IN GREAT PAIN. MEDICATED WITH ROXONOL X2 TODAY BEFORE TURNING WHICH HE SEEMED TO TOLERATE. PT TO SLEEPT FOR PO INTAKE. HAD A FEW BITES OF YOGURT THIS AM, OTHER THAN THAT MOUTH MOISTURE TOOTHETTES AND SUCTION. TURNED ROUTINE. AT BEDSIDE MOST OF THE SHIFT. PT STILL ACKNOWLEDGES HIS . WILL REPORT TO NOC RN
--- NOTE | 2025-06-07 05:13 | NUR ---
SHIFT SUMMARY PT ALERT OPENS HIS EYES AND TRYS TO RESPOND WHEN YOU ASK HIM QUESTIONS BUT UNABLE TO DO SO. I ASKED HIM IF HIS NAME WAS HAKAN OR ZANE AND HE SHOOK HIS HEAD NO. HES KEPT TURNED AND REPOSITIONED. REMAINS ON ATIVAN AND ROXANOL NEEDED. EVERYTIME I ASKED HIM IF HE WAS HAVING PAIN HE SHOOK HIS HEAD NO BUT AT 0440 HE WAS HAVING ALOT OF MOANING LIKE HE WAS IN PAIN SO I GAVE HIM A DOSE OF ROXANOL. JORDAN CATH INTACT DRAINING CLAUDIA URINE BUT HE ONLY HAD 200 OUT THIS SHIFT. HE HAS SOME NEW SWELLING TO HIS LT HAND AND BILATERAL FEET. HAND AND FEET WERE ELEVATED ON PILLOWS. REMAINS ON COMFORT CARE HE WAS ACCEPTED AT THE [place] [facility] BUT HE TESTED POSITIVE FOR COVID HES RESTING IN BED AT THIS TIME WITH CALL LIGHT IN REACH
--- NOTE | 2025-06-07 11:54 | NUR ---
"Spiritual Care Visit | Comfort Care Spouse is at bedside and welcomes my visit. Pt. has his eyes open but is minimally responsive and displays evidence of non-verbal confusion when he does respond. Facilitated an update from the Spouse, they went to the bedside and spoke and prayed with the Pt directly. Afterward Pt. displayed evidence of discomfort and was itching his legs. This ux design lead notified his attending nurse. The Pts. [email or web address] verbalized gratitude of the spiritual care visit and support."
--- NOTE | 2025-06-07 18:26 | NUR ---
End of shift summary: Patient is lethargic, responsive to verbal and tactile stimuli. Patient with occasional signs of discomfort and anxiety throughout the shift and medicated per EMAR. Patient repostioned for comfort and has been sleeping soundly with at bedside. No acute changes this shift. Bed in lowest position, call light within reach. Will continue to monitor until next shift nurse arrives and report is given.
--- NOTE | 2025-06-08 04:22 | NUR ---
SHIFT SUMMARY PATIENT SLEEPING SOUNDLY THROUGHOUT SHIFT. SHAKES HEAD NO WHEN ASKED ABOUT PAIN, LITTLE MOANING THIS SHIFT. REPOSITIONED Q2H. JORDAN DRAINING CLAUDIA URINE TO GRAVITY. MOUTH SWABBED WITH DAMP SWABS, AND APPLIED MOISTURIZER TO LIPS. NO BM THIS SHIFT. NO ACUTE CHANGES, WILL CONTINUE TO MONITOR AND REPORT ONTO DAY SHIFT RN.
--- NOTE | 2025-06-08 15:17 | NUR ---
Pt appears comfortable this afternoon. Eyes closed, resp even, unlabored. No changes needed to care plan at this time.
--- NOTE | 2025-06-08 17:35 | NUR ---
End of shift summary: Patient is responsive to verbal/tactile stimulation, mainly non-verbal except for moans today. Patint with increased grimacing, groaning, and reaching for things that are not present. Patient medicated throughout shift per EMAR for comfort. Spouse in room with patient today. Patient repositioned on left side facing window and appears comfortable at this time. Blandon catheter in place draining lino urine. Bed in lowest position, call light within reach. Will continue to monitor until next shift nurse arrives and report is given.
[2025-06-09] MEDS ORDERED: Morphine Sulfate 20 MG/1ML 1 ML Oral Syringe SL PRN (13:35)
--- NOTE | 2025-06-09 17:51 | NUR ---
End of shift summary: Patient is comfort care; semi-comatose and non-verbal. patient with spouse at bedside at this time and sleeping comfortably. Blandon catheter in place with minimal dark lino urine output today. Patient medicated per EMAR. No acute changes this shift. Bed in lowest position, call light within reach. Will continue to monitor until next shift nurse arrives and report is given.
--- NOTE | 2025-06-10 04:32 | NUR ---
SHIFT SUMMARY 89 YR M ON COMFORT CARE. NO ACUTE CHANGES THIS SHIFT. PT HAS SLEPT FOR THE ENTIRETY OF THIS SHIFT. HE RESPONDS TO PHYSICAL STIMULI BUT ONLY BY MEANS OF MOANING. VERY LITTLE URINE OUTPUT. PT IS REPOSITIONED Q2 FOR COMFORT AND PREVENTION OF SKIN BREAKDOWN. BED IN LOW POSITION AND CALL LIGHT IN REACH.
[2025-06-10 05:46] VITALS: BP 150/65
--- NOTE | 2025-06-10 16:47 | NUR ---
SHIFT SUMMARY NO ACUTE CHANGES, RESPONSIVE TO PAIN AND WILL OCCASIONALLY TRACK SPOUSE AND RN VOICE. MEDICATED PER EMAR FOR PAIN AND RESTLESSNESS. EYES REMAIN OPEN, PULLS AWAY FROM MEDICATION ADMINISTRATION. SPOUSE AT BEDSIDE T/O DAY. CALL LIGHT IN REACH, BED IN LOWEST POSITION, BED ALARM ON. Q2H REPOSITIONING, Q4H ORAL CARE. MEPILEXES TO COCCYX AND HEELS C/D/I.
--- NOTE | 2025-06-11 04:43 | NUR ---
SHIFT SUMMARY 89 YR M ON COMFORT CARE. PT IS NON VERBAL BUT DOES GRIMACE WHEN BEING TURNED OR CHANGED. HE DOES NOT CLOSE HIS EYES BUT WILL TRACK SOMEONE IN THE ROOM, OTHERWISE HIS STARE IS FIXED AND GLAZED. ROXINOL AND ATIVAN GIVEN FOR COMFORT. JORDAN IS PATENT BUT PT IS PRODUCING VERY LITTLE URINE AND THE URINE IS DARK WITH SEDIMENT. NO NEW CHANGES TO REPORT. BED IS IN LOW POSITION AND CALL LIGHT IN REACH.
--- NOTE | 2025-06-11 14:52 | NUR ---
"Spiritual Care | Comfort Care* Pt. is on comfort care and is not responsive. Spouse is at bedside. Facilitated a lengthy update. Listen with empathy and a calming presence. Considered matters of ghassan and a lengthy comfort care process. Spouse displayed evidence of understanding and agreement. Prayed fo rthe Pt. Spouse verbalized gratitude for the spiritual care visits, and welcomed this wood heel cementer to return. Will remain available to the spouse. *EOL decisions were made in an earlier posting."
--- NOTE | 2025-06-11 16:46 | NUR ---
SHIFT SUMMARY NO ACUTE CHANGES. CONTINUES ON COMFORT CARE - SPOUSE AT BEDSIDE. COMFORT CART PROVIDED. PT UNRESPONSIVE MAJORITY OF DAY WITH OPEN AND EYES AND TRACK AT TIMES. NPO. ORAL CARE AND REPOSITIONING TOELRATED BY PT. JORDAN PATENT AND DRAINING CLAUDIA COLORED URINE. APPROX 300 ML OUTPUT IN LAST 24 HRS. PT CURRENTLY RESTING PEACEFULLY WITH NO S/SX OF DISTRESS. BED ALARM ON, CALL LIGHT IN REACH.
--- NOTE | 2025-06-12 05:26 | NUR ---
SHIFT SUMMARY 89 YR M ON COMFORT CARE. NO CHANGES THIS SHIFT. PT HAS BEEN NON RESPONSIVE EVEN WHEN BEING REPOSITIONED. FIXED AND GLAZED STARE. HE HAS PUT OUT APPROX 50 ML OF URINE THIS SHIFT. REPOSITIONED Q2 FOR COMFORT.
--- NOTE | 2025-06-12 14:11 | NUR ---
"Spiritual Care Visit | Comfort Care Pt. continues to linger. Spouse is at bedside and welcomes my visit. Spouse verbalize that the Pt. had been more alert and responsive earlier today. Listen with care and empathy. Consider matters of their relationship. Pt. dislays evidence of quiet breathing. Spouse had an incoming phone call, but verbalized gratitude for the spiritual care support."
--- NOTE | 2025-06-12 17:21 | NUR ---
COMFORT MEASURES REMAIND ALL DAY FOR PT. TURNED EVERY 2 HOUR. MEDICATIONS GIVEN FOR COMOFRT AND ANXIETY. PT'S AT BEDSIDE ALL DAY.
--- NOTE | 2025-06-12 17:44 | NUR ---
"Spiritual Care | COmfort Care Follow up Pt. is on comfort care and is mostly not responsive. Spouse Corina is at bedside. Facilitated an update. Since a time of prayer was interrupted on my earlier visit. We gathered at bedside and prayed for the Pt. Pt. displayed some evidence of being aware and responsive. Informed the Spouse of accsess to after hours on-call chaplains. Spouse verbalized gratitude for the spiritual care visit."
--- NOTE | 2025-06-13 06:23 | NUR ---
STEM MOUNTER SUMMARY PT REMAINS ON COMFORT CARE. NO ACUTE CHANGES THIS SHIFT. HAS BEEN RESTING QUIETLY. CHEST RISE/RESPIRATIONS NOTED. ON DROPLET PRECAUTIONS FOR COVID. SLIGHT GROANING W/ Q2H REPOSITION. QUIET OTHERWISE.
--- NOTE | 2025-06-13 17:01 | NUR ---
"Comfort Care | Spouse Support Pt. is on comfort care andis mostly not responsive. Spouse is at bedside and welcomes my visit. Family stories are shared at length. Spouse verbalized an expectation that the Pt. would be transferred to [facility] tomorrow. Spouse displayed evidence of both hope and grief. Prayed over the Pt. and for the Spouse. Spouse verbalized gratitude for the psiritual care visit."
--- NOTE | 2025-06-13 19:41 | NUR ---
SHIFT SUMMARY PT RESPONSE TO PAINFUL STIMULI, PT REMAINS ON COMFORT CARE. ORAL CARE COMPLETE. COMFORT CARE ASSESS COMPLETE. JORDAN IN PLACE, CHEST RISE/RESPIRATIONS NOTED, ON DROPLET PRECAUTIONS FOR COVID. REPOSITIONED Q2H. AT BEDSIDE TODAY. MEDICATED TWICE W ROXANOL THIS SHIFT DUE TO AIR HUNGER AND PAIN. COMMUNITY FUNDRAISER CAME TO SEE PT AND THIS SHIFT. PT IN BED, BED IN LOWEST POSITION, CALL LIGHT IN REACH. PLAN FOR PT TO GO TO [place] ON HOSPICE TOMORROW
--- NOTE | 2025-06-14 06:09 | NUR ---
MANAGER CHEMISTRY SUMMARY PT REMAINS ON COMFORT CARE. NO ACUTE CHANGES THIS SHIFT. RESTING QUIETLY W/ EVEN, UNLABORED RESPIRATIONS AND CHEST RISE NOTED. REMAINS ON DROPLET PRECAUTIONS FOR COVID. REGULAR POSITIONING AND ORAL CARE PERFORMED. BED RAILS UP X 2, BED IN LOWEST POSITION, BED WHEELS LOCKED, PERSONAL BELONGINGS AND CALL LIGHT WITHIN REACH FOR SAFETY.
[2025-06-14] MEDS ORDERED: ATROPINE SULFATE2 M1 SL (12:56)
[2025-06-14] MEDS ORDERED: OLAN5A MM (12:56)
--- NOTE | 2025-06-14 16:37 | NUR ---
DISCHARGE NOTE PT RESPONSE TO PAINFUL STIMULI, PT REMAINS ON COMFORT CARE. ISOLATION COMPLETED TODAY. ORAL CARE COMPLETE. COMFORT CARE ASSESSMENTS COMPLETED. JORDAN IN PLACE, NO DEPENDENT LOOPS. REPOSITIONED Q2 H. AT BEDSIDE. DISCHARGE COMPLETED PER MOTOR ANALYST AND ACCOUNT ADVISOR. GAVE REPORT TO RN AT [facility]. TRANSPORT CAME TO [employer] ARTILLERY OFFICER PT AT 1550. PT RECEIVE DOSE OF ROXANOL PRIOR TO TRANSPORT. PT LEFT WITH BELONGINGS IV D/C. DISCHARGE PACKET SENT WITH TRANSPORT.
== END 2025-06-14 16:23 | DRG 682 ==
LOC: ER 17:22 → MEDS 20:22 → ERHOLD 20:22 → PCU 05-29 09:15 → MEDS 05-29 18:21 → ENPENDDIS 06-14 12:53 → MEDS 06-14 16:23
PROVIDERS: Hospitalist; Internal Medicine; Internal Medicine Nephrology; Nurse Practitioner Acute Care; Student in an Organized Health Care Education/Training Program; ADMIT Student in an Organized Health Care Education/Training Program
PROC: 0T9B70Z Drainage of Bladder with Drainage Device, Via Natural or Artificial Opening (ICD-10-PCS; principal; 2025-05-28)
PROC: 3E03329 Introduction of Other Anti-infective into Peripheral Vein, Percutaneous Approach (ICD-10-PCS; 2025-05-28)
DX: N17.9 Acute kidney failure, unspecified (principal); G92.8 Other toxic encephalopathy; I48.20 Chronic atrial fibrillation, unspecified; R64 Cachexia; E87.0 Hyperosmolality and hypernatremia; E87.1 Hypo-osmolality and hyponatremia; Z66 Do not resuscitate; Z51.5 Encounter for palliative care; Z95.1 Presence of aortocoronary bypass graft; D50.9 Iron deficiency anemia, unspecified; E86.0 Dehydration; B96.20 Unspecified Escherichia coli [E. coli] as the cause of diseases classified elsewhere; F03.90 Unspecified dementia, unspecified severity, without behavioral disturbance, psychotic disturbance, mood disturbance, and anxiety; M79.661 Pain in right lower leg; R33.9 Retention of urine, unspecified; E11.9 Type 2 diabetes mellitus without complications; N18.31 Chronic kidney disease, stage 3a; I12.9 Hypertensive chronic kidney disease with stage 1 through stage 4 chronic kidney disease, or unspecified chronic kidney disease; N13.6 Pyonephrosis; N20.0 Calculus of kidney; D63.1 Anemia in chronic kidney disease; E83.39 Other disorders of phosphorus metabolism; Z79.01 Long term (current) use of anticoagulants; Z79.899 Other long term (current) drug therapy; E87.5 Hyperkalemia; Z68.21 Body mass index [BMI] 21.0-21.9, adult
CPT/HCPCS: 36415; 51702; 51798; 73502; 73562-RT; 73600; 74150; 76770; 80048; 80053; 80069; 81001; 82550; 82728; 82784; 83521; 83540; 83550; 83735; 84100; 84155; 84165; 84295; 85014; 85018; 85025; 86334; 87040; 87077; 87086; 87186; 87426-QW; 93005; 93010; 96374; 99285-25; A9270; J0696; J1630; J2916; J7030; J7060; J7070; U0002